=== PATIENT | male | born 1980 | race Caucasian/White ===

== ENCOUNTER 2016-11-12 11:10 | Emergency (ER) | payer MEDICARE, MEDICAID ==
[~2016-11-12] VITALS: Ht 182.9 cm; Wt 83.0 kg
[~2016-11-12 11:10] MED LIST: CYCL10TA2 PO
--- NOTE | 2016-11-12 11:46 | RAD ---
Portable chest, 11/12/2016: History: Chest pain Comparison is made to a study from 09/05/2015. An electronic device is projected over the left mid chest with associated electrodes extending into the left lower neck. The heart size and pulmonary vascularity are normal. The lungs are clear. There is no evidence of pleural fluid. IMPRESSION: No acute cardiopulmonary abnormality is detected.
[2016-11-12 11:49] LABS: BASO # 0.1 x10^3/uL (0.0-0.2); BASO % 1 % (0-3); EOS % 1 % (0-3); HEMOGLOBIN 16.3 g/dL (13.0-17.5); LYMPH # 2.1 x10^3/uL (1.0-4.8); LYMPH % 21 % (24-48); MEAN CORPUSCULAR HEMOGLOBIN 34 pg (25-35); MEAN CORPUSCULAR HGB CONC 36 g/dL (31-37); MEAN CORPUSCULAR VOLUME 96 fL (79-100); MONO % 6 % (0-9); NEUT % 72 % (31-73); PLATELET COUNT 300 x10^3/uL (140-400); RED BLOOD COUNT 4.81 x10^6/uL (4.30-5.70); RED CELL DISTRIBUTION WIDTH 12.7 % (11.5-14.5); WHITE BLOOD COUNT 10.1 x10^3/uL (4.0-11.0)
[2016-11-12 11:53] LABS: PROTHROMBIN TIME PATIENT 12.5 SEC (11.7-14.0)
[2016-11-12 11:58] LABS: CREATININE 1.2 mg/dL (0.7-1.3); GFR 68.5; POTASSIUM 3.4 mmol/L (3.5-5.1)
[2016-11-12 12:04] LABS: ALBUMIN 4.2 g/dL (3.4-5.0); DIRECT BILIRUBIN 0.2 mg/dL (0.0-0.2); MAGNESIUM 1.6 mg/dL (1.8-2.4); TOTAL BILIRUBIN 0.8 mg/dL (0.2-1.0); TOTAL PROTEIN 7.2 g/dL (6.4-8.2)
[2016-11-12 12:12] LABS: CKMB INDEX 0.6 % (0-4); CKMB MASS 0.8 ng/mL (0.0-3.6)
[2016-11-12 12:30] VITALS: BP 126/71
--- NOTE | 2016-11-12 12:33 | PHYS DOC ---
Past Medical History Past Medical History: Anxiety, Bipolar, Depression, High Cholesterol, Seizure Additional Past Medical Histor: ULCERS, KIDNEY STONES, HEADACHE Past Surgical History: Tonsillectomy Additional Past Surgical Histo: Lithotripsy, VAGAL NERVE STIMULATOR L CHEST WALL Alcohol Use: None Drug Use: Marijuana Adult General Chief Complaint Chief Complaint: CHEST PAIN HPI HPI Patient is a 36 year old male brought to the ED by EMS with the complaint of pain in the right side of his chest which began about an hour ago. The patient was working on his car when he began to feel anxious and had pain starting in his right lower chest that went up into his right upper chest and into his right shoulder and right neck. He became more anxious and decided to smoke a joint but that did not help. He had his mother drive him to the fire station where he was evaluated by EMS and brought to the ED. He was given one sublingual nitroglycerin with no relief. Prehospital EKG was unremarkable. Because of his complaint of 10 out of 10 pain, EMS gave him IV fentanyl and Versed 3 mg. The patient states he is now feeling a little better. Has no cardiac history. He is in good general health. No PCP. He does smoke cigarettes and marijuana. Review of Systems Review of Systems Constitutional: Denies fever or chills [] Eyes: Denies change in visual acuity, redness, or eye pain [] HENT: Denies nasal congestion or sore throat [] Respiratory: Denies cough or shortness of breath [] Cardiovascular: Right-sided chest pain as in history of present illness GI: Denies abdominal pain, nausea, vomiting, bloody stools or diarrhea [] : Denies dysuria or hematuria [] Musculoskeletal: Denies back pain or joint pain [] Integument: Denies rash or skin lesions [] Neurologic: Denies headache, focal weakness or sensory changes [] Allergies Allergies Allergies Coded Allergies Type Severity Reaction Last Updated Verified aspirin Allergy Intermediate 07/11/16 Yes latanoprost Allergy Intermediate 07/24/15 Yes latex Allergy Intermediate 01/07/16 Yes tramadol Allergy Intermediate 07/24/15 Yes Physical Exam Physical Exam Constitutional: Well developed, well nourished, no acute distress, non-toxic appearance. Alert, mentating normally despite having had Versed 3 mg via EMS, nondiaphoretic, color good. HENT: Normocephalic, atraumatic, bilateral external ears normal, nose normal. [ ] Eyes: conjunctiva normal, no discharge. [] Neck: Normal range of motion, no stridor. [] Cardiovascular:Heart rate regular rhythm, no murmur , no rub Lungs & Thorax: Bilateral breath sounds clear to auscultation , good air movement bilaterally Abdomen: Bowel sounds normal, soft, no tenderness, no masses, no pulsatile masses. No right upper quadrant tenderness, liver not enlarged, negative Montez' s. Skin: Warm, dry, no erythema, no rash. [] Back: No tenderness, no CVA tenderness. [] Extremities: No tenderness, no cyanosis, no clubbing, ROM intact, no edema. [] Neurologic: Alert and oriented X 3, normal motor function, normal sensory function, no focal deficits noted. [] Current Patient Data Vital Signs Vital Signs Date Time Temp Pulse Resp B/P Pulse Ox O2 Delivery O2 Flow Rate FiO2 11/12/16 12:30 75 21 126/71 97 Room Air 11/12/16 11:20 97.5 97.5 Lab Values Laboratory Tests Test 11/12/16 11:35 White Blood Count 10.1x10^3/uL (4.0-11.0) Red Blood Count 4.81x10^6/uL (4.30-5.70) Hemoglobin 16.3g/dL (13.0-17.5) Hematocrit 46.0% (39.0-53.0) Mean Corpuscular Volume 96fL (79-100) Mean Corpuscular Hemoglobin 34pg (25-35) Mean Corpuscular Hemoglobin Concent 36g/dL (31-37) Red Cell Distribution Width 12.7% (11.5-14.5) Platelet Count 300x10^3/uL (140-400) Neutrophils (%) (Auto) 72% (31-73) Lymphocytes (%) (Auto) 21% (24-48) L Monocytes (%) (Auto) 6% (0-9) Eosinophils (%) (Auto) 1% (0-3) Basophils (%) (Auto) 1% (0-3) Neutrophils # (Auto) 7.2x10^3uL (1.8-7.7) Lymphocytes # (Auto) 2.1x10^3/uL (1.0-4.8) Monocytes # (Auto) 0.6x10^3/uL (0.0-1.1) Eosinophils # (Auto) 0.1x10^3/uL (0.0-0.7) Basophils # (Auto) 0.1x10^3/uL (0.0-0.2) Prothrombin Time 12.5SEC (11.7-14.0) Prothrombin Time INR 1.0 (0.8-1.1) Sodium Level 142mmol/L (136-145) Potassium Level 3.4mmol/L (3.5-5.1) L Chloride Level 104mmol/L (98-107) Carbon Dioxide Level 25mmol/L (21-32) Anion Gap 13 (6-14) Blood Urea Nitrogen 9mg/dL (8-26) Creatinine 1.2mg/dL (0.7-1.3) Estimated GFR (Cockcroft-Gault) 68.5 Glucose Level 114mg/dL (70-99) H Calcium Level 9.0mg/dL (8.5-10.1) Magnesium Level 1.6mg/dL (1.8-2.4) L Total Bilirubin 0.8mg/dL (0.2-1.0) Direct Bilirubin 0.2mg/dL (0.0-0.2) Aspartate Amino Transferase (AST) 14U/L (15-37) L Alanine Aminotransferase (ALT) 21U/L (16-63) Alkaline Phosphatase 110U/L (46-116) Creatine Kinase 130U/L (39-308) Creatine Kinase MB (Mass) 0.8ng/mL (0.0-3.6) Creatine Kinase MB Relative Index 0.6% (0-4) Troponin I Quantitative < 0.017ng/mL (0.000-0.055) CG-Xvy-O-Type Natriuretic Peptide 21pg/mL (0-124) Total Protein 7.2g/dL (6.4-8.2) Albumin 4.2g/dL (3.4-5.0) Lipase 57U/L (73-393) L Laboratory Tests 11/12/16 11:35 Laboratory Tests 11/12/16 11:35 EKG EKG 12-lead EKG read a me. Sinus rhythm. Heart rate 74. There are no acute ST or T wave changes indicative of ischemia or infarction. No STEMI. 1117 [] Radiology/Procedures Radiology/Procedures One view portable chest x-ray read by the radiologist. No acute abnormality. [] Course & Med Decision Making Course & Med Decision Making Pertinent Labs and Imaging studies reviewed. (See chart for details) 36-year-old male brought to the ED by EMS with the complaint of pain in his right lower chest/upper abdomen that goes up into the right side of his chest and right shoulder which had abrupt onset. Normal EKG. The pain does not sound cardiac in any way. He is feeling better after EMS treatment of IV fentanyl and Versed. I advised the patient we will check some labs and a chest x-ray and he is agreeable to that plan. Patient rested comfortably in the ED. Labs are unremarkable, chest x-ray, EKG are normal. He had no further complaints. Although the cause of his pain is unclear don't believe it was any serious cause and he can safely be discharged. His mother is here to pick him up. [] Dragon Disclaimer Dragon Disclaimer This electronic medical record was generated, in whole or in part, using a voice recognition dictation system. Departure Departure Impression: Primary Impression: Chest pain Disposition: HOME, SELF-CARE Condition: IMPROVED Referrals: EUSEBIA ADKINS (PCP) Additional Instructions: As we discussed, your evaluation in the ED did not indicate any serious cause of your pain. Rest today, drink plenty of fluids. No driving for 12 hours due to the medications you are given by EMS. I recommend that you stop smoking marijuana because that can cause some of the symptoms that you experienced today including shortness of breath, chest pain, and anxiety. REBECCA ALBRECHT MD Nov 12, 2016 12:33
--- NOTE | 2016-11-12 14:11 | EKG ---
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
== END 2016-11-12 12:45 | disposition home or self-care (01) ==
LOC: ER 11:10
DX: R07.89 Other chest pain (principal); M25.511 Pain in right shoulder; M54.2 Cervicalgia; F31.9 Bipolar disorder, unspecified; F41.9 Anxiety disorder, unspecified; E78.00 Pure hypercholesterolemia, unspecified; F17.210 Nicotine dependence, cigarettes, uncomplicated; F12.10 Cannabis abuse, uncomplicated; Z87.442 Personal history of urinary calculi; Z88.6 Allergy status to analgesic agent; Z88.5 Allergy status to narcotic agent; Z88.8 Allergy status to other drugs, medicaments and biological substances; Z91.040 Latex allergy status
CPT/HCPCS: 36415; 71010; 80048; 80076; 82553; 83690; 83735; 83880; 84484; 85027; 85610; 93005; 99285-25

== ENCOUNTER 2016-12-15 12:37 | Emergency (ER) | payer MEDICARE, MEDICAID ==
[~2016-12-15] VITALS: Ht 185.4 cm; Wt 81.9 kg
[2016-12-15] MEDS ORDERED: IV NORMAL SALINE 1000ML BAG 1,000 ML IV SCH (12:48)
--- NOTE | 2016-12-15 12:56 | PHYS DOC ---
Past Medical History Past Medical History: Anxiety, Bipolar, Depression, High Cholesterol, Seizure Additional Past Medical Histor: ULCERS, KIDNEY STONES, HEADACHE Past Surgical History: Tonsillectomy Additional Past Surgical Histo: Lithotripsy, VAGAL NERVE STIMULATOR L CHEST WALL Smoking: Cigarettes Alcohol Use: None Drug Use: Marijuana Adult General Chief Complaint Chief Complaint: CHEST PAIN HPI HPI Patient is a 36 year old male who presents with chest pain Pt states sudden onset of substernal chest pain, sharp 10/10 with dyspnea, diaphoresis and nausea. Similar to CP seen in ER 1-2 weeks ago and told to go see a assembler trim but hasn't been able to see one yet Review of Systems Review of Systems Constitutional: Denies fever or chills [] Eyes: Denies change in visual acuity, redness, or eye pain [] HENT: Denies nasal congestion or sore throat [] Respiratory: Denies cough] Cardiovascular: No additional information not addressed in HPI [] GI: Denies abdominal pain, nausea, vomiting, bloody stools or diarrhea [] : Denies dysuria or hematuria [] Musculoskeletal: Denies back pain or joint pain [] Integument: Denies rash or skin lesions [] Neurologic: Denies headache, focal weakness or sensory changes [] Current Medications Current Medications Current Medications Medications (Trade) Dose Ordered Sig/Avril Start Time Stop Time Status Last Admin Dose Admin Info (Do NOT chart on this entry -- for MONITORING) 1 each PRN DAILY PRN 12/15/16 15:15 12/15/16 17:27 DC Iohexol (Omnipaque 300 Mg/ml) 75 ml 1X ONCE 12/15/16 15:15 12/15/16 15:16 DC Morphine Sulfate 4 mg PRN Q15MIN PRN 12/15/16 13:00 12/15/16 17:27 DC 12/15/16 12:58 4 MG Ondansetron HCl (Zofran) 4 mg 1X ONCE 12/15/16 13:00 12/15/16 13:01 DC 12/15/16 12:57 4 MG Pantoprazole Sodium (Protonix Vial) 40 mg 1X ONCE 12/15/16 14:00 12/15/16 14:01 DC 12/15/16 14:28 40 MG Sodium Chloride 500 ml @ 500 mls/hr 1X ONCE 12/15/16 14:15 12/15/16 15:14 DC 12/15/16 14:27 500 MLS/HR Allergies Allergies Allergies Coded Allergies Type Severity Reaction Last Updated Verified aspirin Allergy Intermediate 07/11/16 Yes latanoprost Allergy Intermediate 07/24/15 Yes latex Allergy Intermediate 01/07/16 Yes tramadol Allergy Intermediate 07/24/15 Yes Physical Exam Physical Exam Constitutional: Well developed, well nourished, acute distress from chest pain, tearful HENT: Normocephalic, atraumatic, bilateral external ears normal, oropharynx moist, no oral exudates, nose normal. [] Eyes: PERRLA, conjunctiva normal, no discharge. [] Neck: Normal range of motion, no tenderness, supple, no stridor. [] Cardiovascular:Heart rate regular rhythm, no murmur [] Lungs & Thorax: Bilateral breath sounds clear to auscultation [] Abdomen: + BS soft epigastric tenderness with voluntary guarding no rebound Skin: Warm, dry, no erythema, no rash. [] Back: No tenderness, no CVA tenderness. [] Extremities: No tenderness, no cyanosis, no clubbing, ROM intact, no edema. [] Neurologic: Alert and oriented X 3, normal motor function, normal sensory function, no focal deficits noted. [] Psychologic: Affect anxious Current Patient Data Vital Signs Vital Signs Date Time Temp Pulse Resp B/P (MAP) Pulse Ox O2 Delivery O2 Flow Rate FiO2 12/15/16 16:56 61 139/108 (118) 12/15/16 14:41 15 95 Room Air 12/15/16 12:40 98.2 98.2 Lab Values Laboratory Tests Test 12/15/16 12:49 12/15/16 13:00 White Blood Count 7.2 x10^3/uL (4.0-11.0) Red Blood Count 5.02 x10^6/uL (4.30-5.70) Hemoglobin 16.8 g/dL (13.0-17.5) Hematocrit 49.3 % (39.0-53.0) Mean Corpuscular Volume 98 fL (79-100) Mean Corpuscular Hemoglobin 34 pg (25-35) Mean Corpuscular Hemoglobin Concent 34 g/dL (31-37) Red Cell Distribution Width 12.6 % (11.5-14.5) Platelet Count 307 x10^3/uL (140-400) Neutrophils (%) (Auto) 49 % (31-73) Lymphocytes (%) (Auto) 40 % (24-48) Monocytes (%) (Auto) 8 % (0-9) Eosinophils (%) (Auto) 2 % (0-3) Basophils (%) (Auto) 1 % (0-3) Neutrophils # (Auto) 3.5 x10^3uL (1.8-7.7) Lymphocytes # (Auto) 2.9 x10^3/uL (1.0-4.8) Monocytes # (Auto) 0.6 x10^3/uL (0.0-1.1) Eosinophils # (Auto) 0.2 x10^3/uL (0.0-0.7) Basophils # (Auto) 0.0 x10^3/uL (0.0-0.2) Prothrombin Time 12.6 SEC (11.7-14.0) Prothrombin Time INR 1.0 (0.8-1.1) D-Dimer (Karuna) 0.35 ug/mlFEU (0.00-0.50) Sodium Level 143 mmol/L (136-145) Potassium Level 4.1 mmol/L (3.5-5.1) Chloride Level 104 mmol/L (98-107) Carbon Dioxide Level 29 mmol/L (21-32) Anion Gap 10 (6-14) Blood Urea Nitrogen 9 mg/dL (8-26) Creatinine 1.3 mg/dL (0.7-1.3) Estimated GFR (Cockcroft-Gault) 62.5 Glucose Level 96 mg/dL (70-99) Calcium Level 8.8 mg/dL (8.5-10.1) Magnesium Level 1.8 mg/dL (1.8-2.4) Total Bilirubin 0.5 mg/dL (0.2-1.0) Direct Bilirubin 0.1 mg/dL (0.0-0.2) Aspartate Amino Transferase (AST) 14 U/L (15-37) L Alanine Aminotransferase (ALT) 28 U/L (16-63) Alkaline Phosphatase 117 U/L (46-116) H Creatine Kinase 121 U/L (39-308) Creatine Kinase MB (Mass) < 0.5 ng/mL (0.0-3.6) Creatine Kinase MB Relative Index % (0-4) Troponin I Quantitative < 0.017 ng/mL (0.000-0.055) Total Protein 7.6 g/dL (6.4-8.2) Albumin 3.9 g/dL (3.4-5.0) Lipase 97 U/L (73-393) Urine Color Yellow Urine Clarity Clear Urine pH 7.0 Urine Specific [place] 1.010 Urine Protein Negative mg/dL (NEG-TRACE) Urine Glucose (UA) Negative mg/dL (NEG) Urine Ketones (Stick) Negative mg/dL (NEG) Urine Blood Negative (NEG) Urine Nitrite Negative (NEG) Urine Bilirubin Negative (NEG) Urine Urobilinogen Dipstick 0.2 mg/dL (0.2 mg/dL) Urine Leukocyte Esterase Negative (NEG) Urine RBC 0 /HPF (0-2) Urine WBC 0 /HPF (0-4) Urine Squamous Epithelial Cells Occ /LPF Urine Bacteria 0 /HPF (0-FEW) Laboratory Tests 12/15/16 12:49 Laboratory Tests 12/15/16 12:49 EKG EKG EKG--==-- Normal sinus rhythm, no STEMI, read by ER physician[] Radiology/Procedures Radiology/Procedures PATIENT: BRANDI GRISSOM ACCOUNT: [id number] : 1980 LOCATION: ER AGE: 36 SEX: M EXAM STATUS: REG ER ORD. PHYSICIAN: JASS TSE MD REASON: chest pain PROCEDURE: PORTABLE CHEST 1V Portable chest, 12/15/2016: History: Chest pain Comparison is made to a study from 11/12/2016. An electronic device remains in place projected over left mid chest with an electrode extending into the left lower neck. The heart size and pulmonary vascularity are normal. No pulmonary infiltrates are seen. There is no evidence of pleural fluid. IMPRESSION: No acute cardiopulmonary abnormality is detected. DICTATED and SIGNED BY: KAL ARAUJO MD DATE: 12/15/16 8901 CC: JASS TSE MD; EUSEBIA ADKINS PATIENT: BRANDI GRISSOM ACCOUNT: [id number] : 1980 LOCATION: ER AGE: 36 SEX: M EXAM STATUS: REG ER ORD. PHYSICIAN: JASS TSE MD REASON: chest pain PROCEDURE: CT CHEST W/CONTRAST CT of the chest with contrast, 12/15/2016: History: Chest pain Multidetector CT imaging was performed following an IV bolus injection of iodinated contrast material. Multiplanar reconstructions were produced. The thoracic aorta is of normal caliber. There is no evidence of dissection. This study was nonoptimized for evaluation of the pulmonary arteries. No mediastinal or hilar adenopathy is seen. There are calcified granulomata at the left hilum. There is an electronic device in the left anterior chest wall within the extending into the left lower neck. There is a calcified granuloma in the left upper lobe anterolaterally. There is a tiny 4 mm subpleural noncalcified nodule in the anterior aspect of the left lower lobe abutting the inferior aspect of the oblique fissure. No other unusual pulmonary opacities are seen. No significant infiltrate is evident. There is no evidence of pleural fluid. IMPRESSION: 1. Old calcified granulomatous disease in the left chest. 2. Tiny noncalcified subpleural nodule left lower lobe, likely a granuloma, although a neoplastic etiology cannot be excluded. Advisability of CT follow-up will depend upon the patient's risk factors. 3. No acute chest abnormality is detected. PATIENT: BRANDI GRISSOM ACCOUNT: [id number] : 1980 LOCATION: ER AGE: 36 SEX: M EXAM STATUS: REG ER ORD. PHYSICIAN: JASS TSE MD REASON: abdominal pain PROCEDURE: CT ABD PELV W/ IV CONTRST ONLY Indication abdominal pain. Axial images through the abdomen and pelvis were obtained. Approximately 75 cc of Omnipaque [address] imaging of the abdomen or pelvis is available. An acute finding at either lung base is not seen. There is a well-defined peripheral nodule measuring approximately 4 mm, pleural-based, at the left lung base ventrally. Follow-up imaging along the lines of the Fleischner criteria should be considered. The liver and spleen appear unremarkable and the gallbladder appears grossly normal. No pancreatic abnormality is seen. The adrenal glands appear normal. There are multiple intrarenal calculi seen involving both kidneys. A mass or acute finding involving either kidney is not seen. There is no hydronephrosis hydroureter or calcification seen along the course of either ureter. Occasional phleboliths are noted in the pelvis. An acute finding in the abdomen is not seen. In the pelvis occasional diverticula are seen associated with the large bowel. Active inflammation is not seen. Acute finding in the pelvis is not apparent. There is some possible diffuse thickening of the urinary bladder. This may be secondary to a slightly collapsed state. Chronic cystitis or outlet obstruction could give a similar appearance. Clinical correlation advised. IMPRESSION: No definite acute finding seen in the abdomen or pelvis. Nonobstructive bilateral intrarenal calculi. Possible mild thickening of the urinary bladder. Differential considerations for the appearance include a somewhat collapsed state,, inflammatory process or chronic outlet obstructive process. Well-defined small peripheral nodule at the left lung base. Follow-up imaging along the lines of the Fleischner criteria should be considered. Nodules detected incidentally at non-screening CT Nodule size (mm) less than or equal to 4 Low Risk patients- no follow-up needed High Risk patients- follow-up at 12 months and if no change, no further imaging needed. Nodule size > 4-6 mm Low risk patients- follow- up at 12 months and if no change, no further imaging needed High risk patients- initial follow-up CT at 6-12 months and then at 18-24 months if no change. Nodule Size > 6-8 mm Low risk patients- initial follow-up CT at 6-12 months and then at 18-24 months if no change. High risk patients- initial follow- up CT at 3-6 months and then at 9-12 months if no change, Nodule Size >8 mm Either low or high risk patients: Follow-up CT at around 3, 9 and 24 [address] Dynamic contrast [address], PET, and/or biopsy Note: newly detected indeterminate nodule in person 35 years of age or older. Low risk patients- minimal or absent history of smoking and/or other known risk factors. High risk patients- history of smoking or of other known risk factors. DICTATED and SIGNED BY: LYUDMILA LOPES MD DATE: 12/15/16 0350 CC: JASS TSE MD; EUSEBIA ADKINS ~ Impressions: 1. Chest Pain 2. Abdominal pain Course & Med Decision Making Course & Med Decision Making Pertinent Labs and Imaging studies reviewed. (See chart for details) Pt with hx of elevated Cholesterol and family hx CAD this is second visit for chest pain and hasn't followed up with cardiology Offered pt admit for cardiac workup. Pt states he cannot stay because of daughter graduation. Discussed risk of signing out AMA===, heart attack, loss of current lifestyle and permanent disability. Benefits of staying prevent , heart attack, loss of current lifestyle or pernanent disability. Pt understands risks and still refuses to stay in ER Pt was observed in ER negative troponins, no further chest pain CT chest, abdomen, pelvis===neg Pt signed out AMA Dragon Disclaimer Dragon Disclaimer This electronic medical record was generated, in whole or in part, using a voice recognition dictation system. Departure Departure Impression: Primary Impression: Chest pain Additional Impression: Abdominal pain Disposition: 07 AGAINST MEDICAL ADVICE Condition: STABLE Referrals: EUSEBIA ADKINS (PCP) Problem Qualifiers JASS TSE MD December 15, 2016 12:56
[2016-12-15] MEDS ORDERED: MORPHINE SULFATE 4 MG/ML DISP.SYRIN. IV/SQ PRN (13:00)
[2016-12-15] MEDS ORDERED: ONDANSETRON PF 4 MG/2 ML VIAL. IV ONE (13:00)
--- NOTE | 2016-12-15 13:05 | EKG ---
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
[2016-12-15 13:08] LABS: BASO % 1 % (0-3); EOS % 2 % (0-3); HEMATOCRIT 49.3 % (39.0-53.0); HEMOGLOBIN 16.8 g/dL (13.0-17.5); LYMPH # 2.9 x10^3/uL (1.0-4.8); LYMPH % 40 % (24-48); MEAN CORPUSCULAR HEMOGLOBIN 34 pg (25-35); MEAN CORPUSCULAR HGB CONC 34 g/dL (31-37); MEAN CORPUSCULAR VOLUME 98 fL (79-100); MONO % 8 % (0-9); NEUT % 49 % (31-73); PLATELET COUNT 307 x10^3/uL (140-400); RED BLOOD COUNT 5.02 x10^6/uL (4.30-5.70); RED CELL DISTRIBUTION WIDTH 12.6 % (11.5-14.5); WHITE BLOOD COUNT 7.2 x10^3/uL (4.0-11.0)
[2016-12-15 13:18] LABS: CALCIUM 8.8 mg/dL (8.5-10.1); CREATININE 1.3 mg/dL (0.7-1.3); GFR 62.5; POTASSIUM 4.1 mmol/L (3.5-5.1)
[2016-12-15 13:20] LABS: ALBUMIN 3.9 g/dL (3.4-5.0); DIRECT BILIRUBIN 0.1 mg/dL (0.0-0.2); MAGNESIUM 1.8 mg/dL (1.8-2.4); TOTAL BILIRUBIN 0.5 mg/dL (0.2-1.0); TOTAL PROTEIN 7.6 g/dL (6.4-8.2)
[2016-12-15 13:21] LABS: PROTHROMBIN TIME PATIENT 12.6 SEC (11.7-14.0)
[2016-12-15 13:26] LABS: CKMB MASS < 0.5 ng/mL (0.0-3.6); CREATINE KINASE 121 U/L (39-308)
--- NOTE | 2016-12-15 13:27 | RAD ---
Portable chest, 12/15/2016: History: Chest pain Comparison is made to a study from 11/12/2016. An electronic device remains in place projected over left mid chest with an electrode extending into the left lower neck. The heart size and pulmonary vascularity are normal. No pulmonary infiltrates are seen. There is no evidence of pleural fluid. IMPRESSION: No acute cardiopulmonary abnormality is detected.
[2016-12-15 13:36] LABS: BILIRUBIN,URINE NEGATIVE (NEG); GLUCOSE,URINE NEGATIVE (NEG); NITRITE,URINE NEGATIVE (NEG); PROTEIN,URINE NEGATIVE (NEG-TRACE); UROBILINOGEN,URINE 0.2 mg/dL (0.2 mg/dL)
[2016-12-15] MEDS ORDERED: IOHEXOL 300 MG/ML 75 ML VIAL IV ONE ×3 (13:45→15:15)
[2016-12-15 14:00] LABS: BACTERIA,URINE 0 /HPF (0-FEW); RBC,URINE 0 /HPF (0-2); SQUAMOUS EPITHELIAL CELL,UR OCC /LPF; WBC,URINE 0 /HPF (0-4)
[2016-12-15] MEDS ORDERED: CONTRAST GIVEN MC PRN ×2 (14:00→15:15)
[2016-12-15] MEDS ORDERED: PANTOPRAZOLE IV PUSH 40 MG VIAL. IVP ONE (14:00)
[2016-12-15] MEDS ORDERED: IV NORMAL SALINE 1000ML BAG 500 ML IV ONE (14:15)
--- NOTE | 2016-12-15 14:20 | RAD ---
Indication abdominal pain. Axial images through the abdomen and pelvis were obtained. Approximately 75 cc of Omnipaque [address] imaging of the abdomen or pelvis is available. An acute finding at either lung base is not seen. There is a well-defined peripheral nodule measuring approximately 4 mm, pleural-based, at the left lung base ventrally. Follow-up imaging along the lines of the Fleischner criteria should be considered. The liver and spleen appear unremarkable and the gallbladder appears grossly normal. No pancreatic abnormality is seen. The adrenal glands appear normal. There are multiple intrarenal calculi seen involving both kidneys. A mass or acute finding involving either kidney is not seen. There is no hydronephrosis hydroureter or calcification seen along the course of either ureter. Occasional phleboliths are noted in the pelvis. An acute finding in the abdomen is not seen. In the pelvis occasional diverticula are seen associated with the large bowel. Active inflammation is not seen. Acute finding in the pelvis is not apparent. There is some possible diffuse thickening of the urinary bladder. This may be secondary to a slightly collapsed state. Chronic cystitis or outlet obstruction could give a similar appearance. Clinical correlation advised. IMPRESSION: No definite acute finding seen in the abdomen or pelvis. Nonobstructive bilateral intrarenal calculi. Possible mild thickening of the urinary bladder. Differential considerations for the appearance include a somewhat collapsed state,, inflammatory process or chronic outlet obstructive process. Well-defined small peripheral nodule at the left lung base. Follow-up imaging along the lines of the Fleischner criteria should be considered. Nodules detected incidentally at non-screening CT Nodule size (mm) less than or equal to 4 Low Risk patients- no follow-up needed High Risk patients- follow-up at 12 months and if no change, no further imaging needed. Nodule size > 4-6 mm Low risk patients- follow- up at 12 months and if no change, no further imaging needed High risk patients- initial follow-up CT at 6-12 months and then at 18-24 months if no change. Nodule Size > 6-8 mm Low risk patients- initial follow-up CT at 6-12 months and then at 18-24 months if no change. High risk patients- initial follow- up CT at 3-6 months and then at 9-12 months if no change, Nodule Size >8 mm Either low or high risk patients: Follow-up CT at around 3, 9 and 24 months Dynamic contrast [address], PET, and/or biopsy Note: newly detected indeterminate nodule in person 35 years of age or older. Low risk patients- minimal or absent history of smoking and/or other known risk factors. High risk patients- history of smoking or of other known risk factors.
--- NOTE | 2016-12-15 15:41 | RAD ---
CT of the chest with contrast, 12/15/2016: History: Chest pain Multidetector CT imaging was performed following an IV bolus injection of iodinated contrast material. Multiplanar reconstructions were produced. The thoracic aorta is of normal caliber. There is no evidence of dissection. This study was nonoptimized for evaluation of the pulmonary arteries. No mediastinal or hilar adenopathy is seen. There are calcified granulomata at the left hilum. There is an electronic device in the left anterior chest wall within the extending into the left lower neck. There is a calcified granuloma in the left upper lobe anterolaterally. There is a tiny 4 mm subpleural noncalcified nodule in the anterior aspect of the left lower lobe abutting the inferior aspect of the oblique fissure. No other unusual pulmonary opacities are seen. No significant infiltrate is evident. There is no evidence of pleural fluid. IMPRESSION: 1. Old calcified granulomatous disease in the left chest. 2. Tiny noncalcified subpleural nodule left lower lobe, likely a granuloma, although a neoplastic etiology cannot be excluded. Advisability of CT follow-up will depend upon the patient's risk factors. 3. No acute chest abnormality is detected. PQRS Compliance Statement: One or more of the following individualized dose reduction techniques were utilized for this examination: 1. Automated exposure control 2. Adjustment of the mA and/or kV according to patient size 3. Use of iterative reconstruction technique
[2016-12-15 16:56] VITALS: BP 139/108
== END 2016-12-15 16:54 | disposition left against medical advice (07) ==
LOC: ER 12:37
DX: R07.89 Other chest pain (principal); R10.13 Epigastric pain; F41.9 Anxiety disorder, unspecified; F32.9 Major depressive disorder, single episode, unspecified; E78.00 Pure hypercholesterolemia, unspecified; F17.210 Nicotine dependence, cigarettes, uncomplicated; F12.10 Cannabis abuse, uncomplicated; Z88.6 Allergy status to analgesic agent; Z88.8 Allergy status to other drugs, medicaments and biological substances; Z91.040 Latex allergy status
CPT/HCPCS: 36415; 71010; 71260; 74177; 80048; 80076; 81001; 82550; 82553; 83690; 83735; 84484; 85027; 85379; 85610; 93005; 96361; 96374; 96375; 99285; C9113; J2270; J2405; J7030; Q9967

== ENCOUNTER 2017-03-26 17:20 | Emergency (ER) | payer MEDICARE, MEDICAID ==
[~2017-03-26] VITALS: Ht 185.4 cm; Wt 79.8 kg
[2017-03-26] MEDS ORDERED: HYDROcodone/APAP 5/325MG 1 TAB TABLET PO ONE (18:00)
[2017-03-26] MEDS ORDERED: OXcarbazepine 300 MG TABLET PO ONE (18:00)
[2017-03-26] MEDS ORDERED: lamoTRIgine 100 MG TABLET. PO ONE (18:00)
[2017-03-26] MEDS ORDERED: levETIRAcetam 500 MG TABLET PO ONE (18:00)
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
[2017-03-26 18:23] LABS: BASO # 0.1 x10^3/uL (0.0-0.2); BASO % 1 % (0-3); EOS % 1 % (0-3); HEMATOCRIT 46.4 % (39.0-53.0); HEMOGLOBIN 16.5 g/dL (13.0-17.5); LYMPH # 3.4 x10^3/uL (1.0-4.8); LYMPH % 37 % (24-48); MEAN CORPUSCULAR HEMOGLOBIN 33 pg (25-35); MEAN CORPUSCULAR HGB CONC 36 g/dL (31-37); MEAN CORPUSCULAR VOLUME 93 fL (79-100); MONO % 8 % (0-9); NEUT % 53 % (31-73); PLATELET COUNT 303 x10^3/uL (140-400); RED BLOOD COUNT 4.97 x10^6/uL (4.30-5.70); RED CELL DISTRIBUTION WIDTH 12.5 % (11.5-14.5); WHITE BLOOD COUNT 9.4 x10^3/uL (4.0-11.0)
[2017-03-26 18:38] LABS: ETHANOL < 10 mg/dL (0-10)
[2017-03-26 18:41] LABS: CALCIUM 9.8 mg/dL (8.5-10.1); CREATININE 1.2 mg/dL (0.7-1.3); GFR 68.1; POTASSIUM 3.4 mmol/L (3.5-5.1)
[2017-03-26 18:45] LABS: ALBUMIN 4.4 g/dL (3.4-5.0); ALBUMIN/GLOBULIN RATIO 1.4 (1.0-1.7); TOTAL BILIRUBIN 0.4 mg/dL (0.2-1.0); TOTAL PROTEIN 7.5 g/dL (6.4-8.2)
[2017-03-26 18:52] LABS: BARBITURATES NEG (NEG); BENZODIAZEPINES POS (NEG); CANNABINOIDS POS (NEG); COCAINE NEG (NEG); METHADONE NEG (NEG); OPIATES NEG (NEG); PHENCYCLIDINE NEG (NEG)
[2017-03-26] MEDS ORDERED: HYDR-971 PO (20:00)
[2017-03-26 20:20] VITALS: BP 128/82
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
== END 2017-03-26 20:27 | disposition home or self-care (01) ==
LOC: ER 17:20
DX: F32.9 Major depressive disorder, single episode, unspecified (principal); S62.326A Displaced fracture of shaft of fifth metacarpal bone, right hand, initial encounter for closed fracture; E78.00 Pure hypercholesterolemia, unspecified; G43.909 Migraine, unspecified, not intractable, without status migrainosus; F17.200 Nicotine dependence, unspecified, uncomplicated; Z87.442 Personal history of urinary calculi; Z88.8 Allergy status to other drugs, medicaments and biological substances; Z88.6 Allergy status to analgesic agent; Z91.040 Latex allergy status; W22.8XXA Striking against or struck by other objects, initial encounter; Y93.89 Activity, other specified; Y99.8 Other external cause status; Y92.89 Other specified places as the place of occurrence of the external cause
CPT/HCPCS: 29125; 36415; 73130; 80053; 80307; 80329; 85025; 99285; G0480; G0479

== ENCOUNTER 2017-04-22 04:51 | Emergency (ER) | payer MEDICARE, MEDICAID ==
[~2017-04-22] VITALS: Ht 185.4 cm; Wt 80.7 kg
[~2017-04-22 04:51] MED LIST changes: +HYDR-971 PO
[2017-04-22 05:03] VITALS: BP 160/105
[2017-04-22] MEDS ORDERED: CLIN300C8 PO (05:16)
[2017-04-22] MEDS ORDERED: IBUP-1060 PO (05:16)
--- NOTE | 2017-04-22 05:16 | PHYS DOC ---
Past Medical History Past Medical History: Anxiety, Bipolar, Depression, High Cholesterol, Kidney Stone, Migraines, Seizure, Other Additional Past Medical Histor: ULCERS, HYPOGLYCEMIA Past Surgical History: Tonsillectomy, Other Additional Past Surgical Histo: Lithotripsy, VAGAL NERVE STIMULATOR L CHEST WALL Alcohol Use: None Drug Use: Marijuana Adult General Chief Complaint Chief Complaint: DENTAL PROBLEM HPI HPI Patient is a 37 year old M who presents with left upper teeth. Patient states she does not have the money to go to a dentist. Patient states he's had tooth pain for the past 3 days with facial swelling. Patient states he's had facial swelling to the left upper and lower jaw. Patient has multiple missing teeth. Patient denies any fevers. Patient denies any difficult swallowing. Patient denies any difficulty talking. Patient denies any chest pain or shortness of breath. Patient has no complaints. Review of Systems Review of Systems GEN: Denies fevers, chills, sweats HEENT: Tooth pain CV: Denies chest pain RESP: Denies shortness of air, cough GI: Denies n/v/d NEURO: Denies confusion, dizziness MSK: Denies weakness, joint pain/swelling Allergies Allergies Allergies Coded Allergies Type Severity Reaction Last Updated Verified aspirin Allergy Intermediate 07/11/16 Yes latanoprost Allergy Intermediate 07/24/15 Yes latex Allergy Intermediate 01/07/16 Yes tramadol Allergy Intermediate 07/24/15 Yes Physical Exam Physical Exam GEN.: mild distress. Alert and oriented. HEENT: Head is normocephalic, atraumatic MOUTH: Patient has fractured tooth to the left upper premolars and molars with right spread dental caries and gum swelling, patient has swelling to the lower left jaw with fractured premolars and molars NECK: Supple. LUNGS: CTAB. HEART: RRR, S1, S2 present. Peripheral pulses intact ABDOMEN: Soft, nontender. Positive bowel sounds. EXTREMITIES: Without any cyanosis. NEUROLOGIC: Normal speech, normal tone PSYCHIATRIC: Normal affect, normal mood. SKIN: No ulcerations Current Patient Data Vital Signs Vital Signs Date Time Temp Pulse Resp B/P (MAP) Pulse Ox O2 Delivery O2 Flow Rate FiO2 04/22/17 05:03 98.6 78 18 99 Room Air 98.6 EKG EKG [] Radiology/Procedures Radiology/Procedures [] Course & Med Decision Making Course & Med Decision Making Pertinent Labs and Imaging studies reviewed. (See chart for details) ED course: Patient was seen and examined emergency room based off the physical exam findings patient be treated with oral antibiotics and oral pain medication. MDM: After reviewing the chart, CC/HPI/PMH, physical exam, I do not believe the patient has emergent medical condition warranting further workup and/or admission at this time. Patient will be treated with oral antibiotics and oral pain medication and discharged home. It is strongly recommended patient follow- up with dentist in one to 2 days. Patient is stable for discharge. Additional verbal discharge instructions were provided to the patient and that if symptoms get worse or any new symptoms arise that are worrisome to the patient he is to return to the emergency room immediately [] Dragon Disclaimer Dragon Disclaimer This electronic medical record was generated, in whole or in part, using a voice recognition dictation system. Departure Departure Impression: Primary Impression: Dental abscess Disposition: HOME, SELF-CARE Condition: IMPROVED Referrals: EUSEBIA ADKINS (PCP) Patient Instructions: Dental Abscess Additional Instructions: Please follow up with a dentist next 1-2 days for further evaluation and management of your teeth Scripts Clindamycin Hcl (CLINDAMYCIN HCL) 300 Mg Capsule 1 CAP PO TID, #30 CAP Prov: MACHELLE AARON DO 04/22/17 Ibuprofen (IBUPROFEN) 800 Mg Tablet 800 MG PO PRN Q8HRS Y for INFLAMMATION for 10 Days, #30 TAB Prov: MACHELLE AARON DO 04/22/17 MACHELLE AARON DO Apr 22, 2017 05:16
== END 2017-04-22 05:33 | disposition home or self-care (01) ==
LOC: ER 04:51
DX: K04.7 Periapical abscess without sinus (principal); E78.00 Pure hypercholesterolemia, unspecified; F31.9 Bipolar disorder, unspecified; G43.909 Migraine, unspecified, not intractable, without status migrainosus; Z88.6 Allergy status to analgesic agent; Z91.040 Latex allergy status; Z88.8 Allergy status to other drugs, medicaments and biological substances
CPT/HCPCS: 99283

== ENCOUNTER 2017-07-09 07:51 | Emergency (ER) | payer MEDICARE, MEDICAID ==
[~2017-07-09] VITALS: Ht 177.8 cm; Wt 80.7 kg
[~2017-07-09 07:51] MED LIST changes: +CLIN300C8 PO; +IBUP-1060 PO
[2017-07-09 08:07] VITALS: BP 160/93
[2017-07-09] MEDS ORDERED: IV NORMAL SALINE 1000ML BAG 1,000 ML IV SCH (08:13)
[2017-07-09] MEDS ORDERED: 0.9 % SODIUM CHLORIDE 10 ML DISP.SYRIN. IV PRN (08:15)
[2017-07-09] MEDS ORDERED: KETOROLAC 30 MG/ML INJ. IV ONE (08:15)
[2017-07-09] MEDS ORDERED: ONDANSETRON PF 4 MG/2 ML VIAL. IV ONE (08:15)
[2017-07-09] MEDS ORDERED: HYDROmorphone 2 MG/ML VIAL IV/SQ PRN (08:15)
--- NOTE | 2017-07-09 08:20 | PHYS DOC ---
Past Medical History Past Medical History: Anxiety, Bipolar, Depression, High Cholesterol, Kidney Stone, Migraines, Seizure, Other Additional Past Medical Histor: ULCERS, HYPOGLYCEMIA Past Surgical History: Tonsillectomy, Other Additional Past Surgical Histo: Lithotripsy, VAGAL NERVE STIMULATOR L CHEST WALL Smoking: Cigarettes, Less than 1pk/day Alcohol Use: None Drug Use: Marijuana Adult General Chief Complaint Chief Complaint: ABDOMINAL PAIN [facility] HPI Patient is a pleasant 37-year-old male with a known history of bipolar disorder , kidney stones, hypothyroidism, seizure disorder, hypertension who presents with abdominal pain that began a week ago. He describes the abdominal pain as sharp and stabbing that began in his right flank radiating to the suprapubic region of his pelvis. It is waxing and waning but now more severe. It does not radiate to the back. There is some difficulty urinating with some debris that was past 2 days ago. He has a history kidney stones and with this he feels it is much the same. He feels intensely nauseated but has not vomited there is no diarrhea or constipation associated with this abdominal pain. Patient denies any fevers, chills, rash. Patient denies any history of sexually transmitted diseases or trauma. Patient's pain is a 9 of 10 at this time he is uncomfortable and he is having tingling to his face and hands bilaterally secondary to the pain in his breathing. Patient has not taken any medications [id number] try to treat his symptoms. Acute pancreatitis. Appendicitis. Acute hepatitis. Peptic ulcer disease. Nonulcer dyspepsia. Irritable bowel disease. Functional gallbladder disorder. Sphincter of Oddi dysfunction. Diseases of the right kidney. Right-sided pneumonia. Jtah-Ffar-Vuzfxa syndrome Subhepatic or intraabdominal abscess. Perforated viscus. Cardiac ischemia. Black spider envenomation UTI, pyonephritis, kidney stone, abdominal aneurysm Cholelithiasis, cholecystitis, ascending cholangitis, Review of Systems Review of Systems Constitutional: Denies fever or chills [] Eyes: Denies change in visual acuity, redness, or eye pain [] HENT: Denies nasal congestion or sore throat [] Respiratory: Denies cough or shortness of breath [] Cardiovascular: No additional information not addressed in HPI [] GI: Patient complains of abdominal pain with nausea but no vomiting or bloody stools or diarrhea constipation. : Patient has some urgency with mild dysuria and the passage of debris Musculoskeletal: Denies back pain or joint pain [] Integument: Denies rash or skin lesions [] Neurologic: Denies headache, focal weakness or sensory changes [] Endocrine: Denies polyuria or polydipsia [] All other systems were reviewed and found to be within normal limits, except as documented in this note. Current Medications Current Medications Current Medications Medications (Trade) Dose Ordered Sig/Avril Start Time Stop Time Status Last Admin Dose Admin Hydromorphone HCl (Dilaudid) 1 mg PRN Q15MIN PRN 07/09/17 08:15 07/10/17 08:14 07/09/17 08:27 1 MG Ketorolac Tromethamine (Toradol) 30 mg 1X ONCE 07/09/17 08:15 07/09/17 08:19 DC 07/09/17 08:24 30 MG Ondansetron HCl (Zofran) 4 mg 1X ONCE 07/09/17 08:15 07/09/17 08:19 DC 07/09/17 08:24 4 MG Sodium Chloride (Normal Saline Flush) 10 ml QSHIFT PRN 07/09/17 08:15 Allergies Allergies Allergies Coded Allergies Type Severity Reaction Last Updated Verified aspirin Allergy Intermediate 07/11/16 Yes latanoprost Allergy Intermediate 07/24/15 Yes latex Allergy Intermediate 01/07/16 Yes tramadol Allergy Intermediate 07/24/15 Yes Physical Exam Physical Exam Other vital signs recorded on the chart at this time patient be hypertensive. Constitutional: Well developed, well nourished, patient obviously uncomfortable but nontoxic appearance. Patient has some obvious carpopedal spasms in his upper external is bilaterally and is hyperventilating on my exam[] HENT: Normocephalic, atraumatic, bilateral external ears normal, oropharynx dry with very poor dentition most of the enamel is rotated away from the top dentition between tooth 2 and 15. Patient has significant dental caries also on the bottom teeth from tooth 31 through 17., no oral exudates, nose normal. [] Eyes: PERRLA, EOMI, conjunctiva normal, no discharge. [] Neck: Normal range of motion, no tenderness, supple, no stridor. [] Cardiovascular:Heart rate regular rhythm, no murmur [] Lungs & Thorax: Bilateral breath sounds clear to auscultation [] Abdomen: Patient has normal active bowel sounds his abdomen is soft but he does have tenderness over the suprapubic region with no masses or pulsatile masses. He has no guarding rebound organomegaly, no Montez's or McBurney's point tenderness palpation and no Veloz Rogel sign.[] Skin: Warm, dry, no erythema, no rash. [] Back: No tenderness, no CVA tenderness. [] Extremities: No tenderness, no cyanosis, no clubbing, ROM intact, no edema. [] Neurologic: Alert and oriented X 3, normal motor function, normal sensory function, no focal deficits noted. [] Psychologic: Patient is very anxious hyperventilating on my exam but exhibits no focal neurologic deficits or problems with mentation. Current Patient Data Vital Signs Vital Signs Date Time Temp Pulse Resp B/P (MAP) Pulse Ox O2 Delivery O2 Flow Rate FiO2 07/09/17 08:27 16 07/09/17 08:07 97.6 83 160/93 (115) 100 Room Air 97.6 Lab Values Laboratory Tests Test 07/09/17 08:04 07/09/17 08:10 Urine Collection Type Unknown Urine Color [place] Urine Clarity Hazy Urine pH 6.5 Urine Specific [place] 1.010 Urine Protein Negative mg/dL (NEG-TRACE) Urine Glucose (UA) Negative mg/dL (NEG) Urine Ketones (Stick) Negative mg/dL (NEG) Urine Blood Large (NEG) Urine Nitrite Negative (NEG) Urine Bilirubin Negative (NEG) Urine Urobilinogen Dipstick 0.2 mg/dL (0.2 mg/dL) Urine Leukocyte Esterase Trace (NEG) Urine RBC Tntc /HPF (0-2) Urine WBC 1-4 /HPF (0-4) Urine Squamous Epithelial Cells Occ /LPF Urine Bacteria Few /HPF (0-FEW) Urine Mucus Slight /LPF White Blood Count 10.0 x10^3/uL (4.0-11.0) Red Blood Count 5.14 x10^6/uL (4.30-5.70) Hemoglobin 16.9 g/dL (13.0-17.5) Hematocrit 49.9 % (39.0-53.0) Mean Corpuscular Volume 97 fL (79-100) Mean Corpuscular Hemoglobin 33 pg (25-35) Mean Corpuscular Hemoglobin Concent 34 g/dL (31-37) Red Cell Distribution Width 13.1 % (11.5-14.5) Platelet Count 340 x10^3/uL (140-400) Neutrophils (%) (Auto) 59 % (31-73) Lymphocytes (%) (Auto) 28 % (24-48) Monocytes (%) (Auto) 9 % (0-9) Eosinophils (%) (Auto) 3 % (0-3) Basophils (%) (Auto) 1 % (0-3) Neutrophils # (Auto) 5.9 x10^3uL (1.8-7.7) Lymphocytes # (Auto) 2.9 x10^3/uL (1.0-4.8) Monocytes # (Auto) 0.9 x10^3/uL (0.0-1.1) Eosinophils # (Auto) 0.3 x10^3/uL (0.0-0.7) Basophils # (Auto) 0.1 x10^3/uL (0.0-0.2) Sodium Level 144 mmol/L (136-145) Potassium Level 4.3 mmol/L (3.5-5.1) Chloride Level 106 mmol/L (98-107) Carbon Dioxide Level 28 mmol/L (21-32) Anion Gap 10 (6-14) Blood Urea Nitrogen 9 mg/dL (8-26) Creatinine 1.1 mg/dL (0.7-1.3) Estimated GFR (Cockcroft-Gault) 75.3 Glucose Level 113 mg/dL (70-99) H Calcium Level 8.6 mg/dL (8.5-10.1) Total Bilirubin 0.2 mg/dL (0.2-1.0) Direct Bilirubin 0.1 mg/dL (0.0-0.2) Aspartate Amino Transferase (AST) 36 U/L (15-37) Alanine Aminotransferase (ALT) 60 U/L (16-63) Alkaline Phosphatase 127 U/L (46-116) H Total Protein 7.6 g/dL (6.4-8.2) Albumin 3.9 g/dL (3.4-5.0) Lipase 109 U/L (73-393) Laboratory Tests 07/09/17 08:10 Laboratory Tests 07/09/17 08:10 EKG EKG [] Radiology/Procedures Radiology/Procedures [] IMAGING REPORT Signed PATIENT: BRANDI GRISSOM ACCOUNT: [id number] : 1980 LOCATION: ER AGE: 37 SEX: M EXAM STATUS: REG ER ORD. PHYSICIAN: STEVE SANABRIA MD REASON: suprapubic pain PROCEDURE: CT ABDOMEN PELVIS WO CONTRAST CT of the abdomen and pelvis without contrast, 07/09/2017: History: Kidney stones, suprapubic pain Noncontrast scans were obtained utilizing the renal stone protocol. There are multiple bilateral intrarenal calculi. The largest of these lies in the upper pole on the left and measures 9 x 4 mm. There is no evidence of hydronephrosis. The ureters are not dilated. The ureters are difficult to clearly trace through the lower pelvis in this patient, however, no ureteral calculus is seen. There are several bilateral pelvic phleboliths. The urinary bladder is unremarkable. There are 2 tiny subpleural nodules in the left base. The largest of these measures 4.5 mm and lies in the anterolateral aspect of the left lower lobe abutting the oblique fissure as seen on image 9 of series #2. These nodules were present on 12/15/2016 and have shown no definite change. The unopacified liver is unremarkable. No gallbladder abnormality is seen. The pancreas shows no abnormality. The spleen is of normal size. The bowel loops are not dilated. There is a moderate amount of stool scattered throughout the colon. A portion of the appendix is visualized and it is unremarkable. No free fluid or free air is evident in the abdomen or pelvis. Small bilateral hydroceles are partially visualized. IMPRESSION: 1. Bilateral intrarenal renal calculi. 2. No obstructing urinary tract calculus is identified. 3. Unchanged tiny left basilar pulmonary nodules. Course & Med Decision Making Course & Med Decision Making Pertinent Labs and Imaging studies reviewed. (See chart for details) []She presents with significant flank pain on the right with radiation to the suprapubic region. Given his history of kidney stones and dysuria differential diagnosis includes but not limited to. Acute pancreatitis. Appendicitis. Acute hepatitis. Peptic ulcer disease. Nonulcer dyspepsia. Irritable bowel disease. Functional gallbladder disorder. Sphincter of Oddi dysfunction. Diseases of the right kidney. Right-sided pneumonia. Cnjc-Cfgf-Geeadc syndrome Subhepatic or intraabdominal abscess. Perforated viscus. Cardiac ischemia. Black spider envenomation UTI, pyonephritis, kidney stone, abdominal aneurysm, Cholelithiasis, cholecystitis, ascending cholangitis. Patient's CBC, CMP, lipase are all normal. Patient's CT scan is unremarkable. Patient's abdominal pain is well improved. Serial abdominal exams demonstrate soft abdomen with no guarding rebound or organomegaly. Patient clearly does not have appendicitis or any other injury at all catastrophe. He has intrarenal stones but no evidence of kidney stone Patient's urinalysis there is straight signs of infection with bacteria, with elevated white blood cells and red blood cells. Given the fact he also is red blood cells and symptoms of a urinary tract infection given his symptoms I will treat him with antibiotics. Dragon Disclaimer Dragon Disclaimer This electronic medical record was generated, in whole or in part, using a voice recognition dictation system. Departure Departure Impression: Primary Impression: Abdominal pain Additional Impression: UTI (urinary tract infection) Disposition: HOME, SELF-CARE Condition: IMPROVED Referrals: EUSEBIA ADKINS (PCP) Patient Instructions: Abdominal Pain Additional Instructions: discharge: I've spoken with the patient and/or caregivers. I've explained the patient's condition, diagnosis and treatment plan based on information available to me at this time. I've answered the patient's and/or caregivers questions and addressed any concerns. The patient and/or caregivers have a good understanding the patient's diagnosis, condition and treatment plan as can be expected at this point. Vital signs have been stabilized. The patient's condition is stable for discharge from the emergency department. The patient will pursue further outpatient evaluation with her primary care provider or other designated consulting physician as outlined in the discharge instructions. Patient and/or caregivers are agreeable to this plan of care and follow-up instructions have been explained in detail. The patient and/or caregivers have received these instructions in written format and expressed understanding of these discharge instructions. The patient and her caregivers are aware that if any significant change in condition or worsening of symptoms should prompt him to immediately return to this of the closest emergency department. If an emergent department is not readily available I would encourage him to call 911. Scripts Hydrocodone Bit/Acetaminophen (HYDROCODONE-APAP 5-325 ) 1 Each Tablet 1-2 TAB PO PRN Q6HRS Y for PAIN for 5 Days, #10 TAB 0 Refills Prov: STEVE SANABRIA MD 07/09/17 Ciprofloxacin Hcl (CIPRO) 500 Mg Tablet 1 TAB PO BID, #20 TAB Prov: STEVE SANABRIA MD 07/09/17 Problem Qualifiers STEVE SANABRIA MD Jul 09, 2017 08:20
[2017-07-09 08:27] LABS: BASO # 0.1 x10^3/uL (0.0-0.2); BASO % 1 % (0-3); EOS % 3 % (0-3); HEMATOCRIT 49.9 % (39.0-53.0); HEMOGLOBIN 16.9 g/dL (13.0-17.5); LYMPH # 2.9 x10^3/uL (1.0-4.8); LYMPH % 28 % (24-48); MEAN CORPUSCULAR HEMOGLOBIN 33 pg (25-35); MEAN CORPUSCULAR HGB CONC 34 g/dL (31-37); MEAN CORPUSCULAR VOLUME 97 fL (79-100); MONO % 9 % (0-9); NEUT % 59 % (31-73); PLATELET COUNT 340 x10^3/uL (140-400); RED BLOOD COUNT 5.14 x10^6/uL (4.30-5.70); RED CELL DISTRIBUTION WIDTH 13.1 % (11.5-14.5)
[2017-07-09 08:47] LABS: CALCIUM 8.6 mg/dL (8.5-10.1); CREATININE 1.1 mg/dL (0.7-1.3); GFR 75.3; POTASSIUM 4.3 mmol/L (3.5-5.1)
[2017-07-09 08:54] LABS: ALBUMIN 3.9 g/dL (3.4-5.0); DIRECT BILIRUBIN 0.1 mg/dL (0.0-0.2); TOTAL BILIRUBIN 0.2 mg/dL (0.2-1.0); TOTAL PROTEIN 7.6 g/dL (6.4-8.2)
--- NOTE | 2017-07-09 09:03 | RAD ---
CT of the abdomen and pelvis without contrast, 07/09/2017: History: Kidney stones, suprapubic pain Noncontrast scans were obtained utilizing the renal stone protocol. There are multiple bilateral intrarenal calculi. The largest of these lies in the upper pole on the left and measures 9 x 4 mm. There is no evidence of hydronephrosis. The ureters are not dilated. The ureters are difficult to clearly trace through the lower pelvis in this patient, however, no ureteral calculus is seen. There are several bilateral pelvic phleboliths. The urinary bladder is unremarkable. There are 2 tiny subpleural nodules in the left base. The largest of these measures 4.5 mm and lies in the anterolateral aspect of the left lower lobe abutting the oblique fissure as seen on image 9 of series #2. These nodules were present on 12/15/2016 and have shown no definite change. The unopacified liver is unremarkable. No gallbladder abnormality is seen. The pancreas shows no abnormality. The spleen is of normal size. The bowel loops are not dilated. There is a moderate amount of stool scattered throughout the colon. A portion of the appendix is visualized and it is unremarkable. No free fluid or free air is evident in the abdomen or pelvis. Small bilateral hydroceles are partially visualized. IMPRESSION: 1. Bilateral intrarenal renal calculi. 2. No obstructing urinary tract calculus is identified. 3. Unchanged tiny left basilar pulmonary nodules. PQRS Compliance Statement: One or more of the following individualized dose reduction techniques were utilized for this examination: 1. Automated exposure control 2. Adjustment of the mA and/or kV according to patient size 3. Use of iterative reconstruction technique
[2017-07-09 10:07] LABS: BILIRUBIN,URINE NEGATIVE (NEG); GLUCOSE,URINE NEGATIVE (NEG); NITRITE,URINE NEGATIVE (NEG); PH,URINE 6.5; PROTEIN,URINE NEGATIVE (NEG-TRACE); UROBILINOGEN,URINE 0.2 mg/dL (0.2 mg/dL)
[2017-07-09 10:15] LABS: BACTERIA,URINE FEW /HPF (0-FEW); RBC,URINE TNTC /HPF (0-2)
[2017-07-09 10:16] LABS: SQUAMOUS EPITHELIAL CELL,UR OCC /LPF
[2017-07-09] MEDS ORDERED: CIPR500T94 PO (10:22)
[2017-07-09] MEDS ORDERED: HYDR-2758 PO (10:22)
== END 2017-07-09 10:50 | disposition home or self-care (01) ==
LOC: ER 07:51
DX: N39.0 Urinary tract infection, site not specified (principal); F41.9 Anxiety disorder, unspecified; F31.9 Bipolar disorder, unspecified; E78.00 Pure hypercholesterolemia, unspecified; G40.909 Epilepsy, unspecified, not intractable, without status epilepticus; G43.909 Migraine, unspecified, not intractable, without status migrainosus; F17.210 Nicotine dependence, cigarettes, uncomplicated; F12.10 Cannabis abuse, uncomplicated; E03.9 Hypothyroidism, unspecified; I10 Essential (primary) hypertension; Z88.6 Allergy status to analgesic agent; Z88.5 Allergy status to narcotic agent; Z88.8 Allergy status to other drugs, medicaments and biological substances; Z91.040 Latex allergy status; Z87.442 Personal history of urinary calculi
CPT/HCPCS: 36415; 74176; 80048; 80076; 81001; 83690; 85025; 87086; 96361; 96374; 96375; 99285; J1170; J1885; J2405; J7030

== ENCOUNTER 2017-12-15 11:26 | Emergency (ER) | payer MEDICARE, MEDICAID | END 2017-12-15 11:45 | disposition left against medical advice (07) | LOC: ER 11:26 | DX: R56.9 Unspecified convulsions (principal); Z53.21 Procedure and treatment not carried out due to patient leaving prior to being seen by health care provider ==